=== PATIENT | female | born 1950 | race Caucasian/White ===

== ENCOUNTER 2025-07-21 13:18 | Emergency (ER) | payer MEDICARE, OTHER, SELFPAY ==
[2025-07-21 13:19] VITALS: BP 118/76; PULSE 108; RESP 18; TEMP 37.1; O2SAT 97; BMI 30.1
--- NOTE | 2025-07-21 13:41 | ED_ITS ---
HPI - Abdominal Pain 2 General: Chief Complaint: Abdominal Pain Stated Complaint: unable to eat or drink for 6 days Time Seen by Provider: 07/21/25 13:22 Source: patient Mode of arrival: ambulatory Limitations: no limitations History of Present Illness: 75-year-old female states that she has b een having diarrhea for the last 6 days. States been watery in nature she has had fatigue along with generalized bodyaches as well. She denies any vomiting she denies abdominal pain denies any fevers. She states she did go to a functional a lot of people on Wednesday. Associated Symptoms: Reports diarrhea Related Data Previous Rx's ?Medication ?Instructions ?Recorded ciprofloxacin HCl 500 mg tablet 500 mg PO BID #14 tabs 07/21/25 (Cipro) metronidazole 500 mg tablet 500 mg PO Q8H 7 days #21 t abs 07/21/25 ondansetron 4 mg disintegrating 4 mg PO Q6H PRN nausea and 07/21/25 tablet vomiting #14 tabs Allergies Allergy/AdvReac Type Severity Reaction Status Date / Time No Known Allergies Allergy Verified 07/21/25 13:35 Review of Systems 2 GI: Reports: diarrhea Physical Exam 2 Const: COMMON NORMALS: no acute distress, patient oriented x3 and healthy appearing HENMT: COMMON NORMALS: normocephalic and atraumatic HEAD & SCALP: n ormocephalic and atraumatic Neck/C-Spine: COMMON NORMALS: full ROM and supple Chest: COMMONS NORMALS: normal inspection of the chest and normal palpation of entire chest wall Resp: COMMON NORMALS: normal respiratory effort, No retractions, No use of accessory muscles and clear to auscultation bilaterally AUSCULTATION: clear to auscultation bilaterally Cardio: COMMON NORMALS: regular rate, regular rhythm and No murmurs present (Cardio) RATE: regular rate RHYTHM: regular rhythm GI: COMMON NORMALS: Normal to inspection, nondistended, normoactive bowel sounds present, Soft to palpation, non-tender and no masses PALPATION: Yes Soft to palpation Extremity: COMMON NORMALS: normal to inspection and full ROM Neuro: COMMON NORMALS: patient oriented x3, moves all extremities and no focal motor deficits Psych: COMMON NORMALS: mental status grossly normal, Normal thought process present and cooperative THOUGHT PROCESS: Normal thought process present Skin: COMMON NORMALS: no rashes or lesions noted and no wounds GENERAL SKIN EXAM: no rashes or lesions noted Course 2 Vital Signs: Vital signs: Vital Signs Temperature 98.7 F 07/21/25 13:19 Pulse Rate 90 07/21/25 15:00 Respiratory Rate 16 07/21/25 15:00 Blood Pressure 124/60 07/21/25 15:00 Pulse Oximetry 96 07/21/25 15:00 Oxygen Delivery Me thod Room Air 07/21/25 15:00 MDM - Abdominal Pain Medical Decision Making Patient presents here with diarrhea she is felt improved here after IV fluids along Lomotil. Did send her stool for cultures C. difficile was negative. Does have lactoferrin her white count here is normal electrolytes have been normal as well. Will treat her Cipro and Flagyl she has had diarrhea for almost a week. Will prescribe her Zofran as well she is to follow-up with her PCP and return if worsening I did go over all this with her and she understands agrees to plan Medical Records I reviewed the patient's medical records. Lab Data I reviewed the patient's lab results. 07/21/25 13:56 07/21/25 14:51 Labs/Radiology: Laboratory Results WBC 7.26 10^3/uL (3.29-11.43) 07/21/25 13:56 RBC 4.76 10^6/uL (3.85-5.65) 07/21/25 13:56 Hgb 14.10 g/dL (11.27-16.99) 07/21/25 13:56 Hct 41.9 % (36-47) 07/21/25 13:56 MCV 88.0 fl (85-98) 07/21/25 13:56 MCH 29.6 pg (27-33) 07/21/25 13:56 MCHC 33.7 g/dL (30-55) 07/21/25 13:56 RDW 12.9 % (12.1-15.1) 07/21/25 13:56 Plt Count 224 10^3/cmm (157-399) 07/21/25 13:56 MPV 9.6 fL (7.4-10.4) 07/21/25 13:56 Neut % (Auto) 73.7 % 07/21/25 13:56 Lymph % (Auto) 16.7 % 07/21/25 13:56 [place] % (Auto) 8.8 % 07/21/25 13:56 Eos % (Auto) 0.1 % 07/21/25 13:56 Baso % (Auto) 0.6 % 07/21/25 13:56 Neut # (Auto) 5.35 10^3/uL (1.8-7.7) 07/21/25 13:56 Lymph # (Auto) 1.2 10^3/uL (0.8-4.8) 07/21/25 13:56 [place] # (Auto) 0.6 10^3/uL (0.2-0.9) 07/21/25 13:56 Eos # (Auto) 0.0 10^3/uL (0.0-0.8) 07/21/25 13:56 Baso # (Auto) 0.0 10^3/uL (0.0-0.1) 07/21/25 13:56 Nucleated RBC % (auto) 0 % 07/21/25 13:56 Nucleated RBCs # 0.0 /100WBC 07/21/25 13:56 Sodium 136 mmol/L (136-145) 07/21/25 14:51 Potassium 4.1 mmol/L (3.5-5.1) 07/21/25 14:51 Chloride 101 mmol/L (98-107) 07/21/25 14:51 Carbon Dioxide 24 mmol/L (22-29) 07/21/25 14:51 Anion Gap 15.1 (5-19) 07/21/25 14:51 BUN 10 mg/dL (8-23) 07/21/25 14:51 Creatinine 0.7 mg/dL (0.5-0.9) 07/21/25 14:51 GFR Calculation Not Reportable 07/21/25 14:51 Glucose 101 mg/dL (65-115) 07/21/25 14:51 Calculated Osmolality 281 mOsm/kg (285-295) L 07/21/25 14:51 Calcium 8.6 mg/dL (8.5-10.5) 07/21/25 14:51 Total Bilirubin 0.4 mg/dL (0.15-1.2) 07/21/25 14:51 AST 16 U/L (0-32) 07/21/25 14:51 ALT 12 U/L (0-33) 07/21/25 14:51 Alkaline Phosphatase 59 U/L (35-105) 07/21/25 14:51 Total Protein 6.3 g/dL (6.6-8.7) L 07/21/25 14:51 Albumin 3.8 g/dL (3.5-5.2) 07/21/25 14:51 Globulin 2.5 g/dL (1.3-4.6) 07/21/25 14:51 Lipase 20 U/L (13-60) 07/21/25 14:51 C. difficile (PCR) Negative (Negative) 07/21/25 14:15 Influenza A (PCR) Negative (Negative) 07/21/25 14:15 Influenza Type B (PCR) Negative (Negative) 07/21/25 14:15 RSV (PCR) Negative (Negative) 07/21/25 14:15 SARS-CoV-2 (PCR) Negative (Negative) 07/21/25 14:15 No radiology studies performed this visit Discharge Plan Discharge Patient Disposition: Home Clinical Impression: Diarrhea Condition: Stable Prescriptions: New metronidazole 500 mg tablet 500 mg PO Q8H 7 Days Qty: 21 0RF ciprofloxacin HCl [Cipro] 500 mg tablet 500 mg PO BID Qty: 14 0RF ondansetron 4 mg tablet,disintegrating 4 mg PO Q6H PRN (Reason: nausea and vomiting) Qty: 14 0RF Discharge Orders: Discharge ED (Routine); Ordered 07/21/25 Ordered By: Alma Sanches Discharge Diet: Advance as tolerated Discharge Activity: Resume usual activity Patient Instructions: Diarrhea - Adult Print Language: [place] Island[place] Coding Level of Care Code ED [employer] P[employer] for Kolton Knight
[2025-07-21 14:01] LABS: Hematocrit 41.9 % (36-47); Hemoglobin 14.10 g/dL (11.27-16.99); Mean Corpuscular HGB Conc 33.7 g/dL (30-55); Mean Corpuscular Hemoglobin 29.6 pg (27-33); Mean Corpuscular Volume 88.0 fl (85-98); Nucleated Red Blood Cells % 0 %; Platelet Count 224 10^3/cmm (157-399); Red Blood Count 4.76 10^6/uL (3.85-5.65); White Blood Count 7.26 10^3/uL (3.29-11.43)
[2025-07-21] MEDS: ondansetron 2 mg/ML SDV 2 mL 4 MG IVP (14:08)
[2025-07-21 14:22] VITALS: BP 122/60; PULSE 98; RESP 16; O2SAT 98
[2025-07-21 15:00] VITALS: BP 124/60; PULSE 90; RESP 16; O2SAT 96
[2025-07-21 15:02] LABS: Respiratory Syncytial Virus Ce NEGATIVE (Negative); SARS-CoV-2 PCR NEGATIVE (Negative)
[2025-07-21 15:04] LABS: C.Diff PCR (Lab) NEGATIVE (Negative)
[2025-07-21 15:11] LABS: Alanine Aminotransferase 12 U/L (0-33); Albumin Level 3.8 g/dL (3.5-5.2); Alkaline Phosphatase 59 U/L (35-105); Anion Gap 15.1 (5-19); Aspartate Amino Transferase 16 U/L (0-32); Blood Urea Nitrogen 10 mg/dL (8-23); Calcium 8.6 mg/dL (8.5-10.5); Carbon Dioxide 24 mmol/L (22-29); Chloride 101 mmol/L (98-107); Creatinine Clr Calc Pharmacy 59.7433; Globulin 2.5 g/dL (1.3-4.6); Glucose 101 mg/dL (65-115); Lipase 20 U/L (13-60); Osmolality Calculated 281 mOsm/kg (285-295); Potassium 4.1 mmol/L (3.5-5.1); Sodium 136 mmol/L (136-145); Total Protein 6.3 g/dL (6.6-8.7)
[2025-07-21 15:41] VITALS: BP 134/66; PULSE 91; RESP 16; O2SAT 93
== END 2025-07-21 15:46 | disposition home or self-care (01) ==
PROVIDERS: Emergency Provider Emergency Medicine
DX: R19.7 Diarrhea, unspecified (principal); Z11.52 Encounter for screening for COVID-19
CPT/HCPCS: 36415; 80053; 82274; 83630; 83690; 85025; 87493; 87637; 96374; 99284; J2405; J7030; J9999